=== PATIENT | female | born 1955 | race Caucasian/White ===

== ENCOUNTER 2019-12-31 12:09 | Day surgery (SDC) | payer MEDICARE ==
[~2019-12-31] VITALS: Ht 165.1 cm; Wt 38.0 kg
[~2019-12-31 12:09] MED LIST: ACID CONTROL PO; ALBIPROI INH; ALEN70 PO; AMIT25 PO; ASPI325EC PO; CEPH500 PO; CHOLESTEROL MED; CLOP75 PO; CYCL10 PO; ESCI10 PO; HYDACE5 PO; HYDACE5325 PO; INSLIS75I SC; NAPR500 PO; OMEP20ER PO; OSTEOPOROSIS MED; PRAV20 PO; RXCYCL10 PO; RXHYDACE PO; TRAM50 PO
[2019-12-31] MEDS ORDERED: Vitamin D2000 UNIT PO (12:43)
[2019-12-31] MEDS ORDERED: TOCO1000 PO (12:43)
[2019-12-31] MEDS ORDERED: FISH OIL 1,001000 MG PO (12:43)
--- NOTE | 2019-12-31 15:04 | NUR ---
PT UPDATED ON WAIT TIME, PROVIDED WITH TELEPHONE TO CONTACT FAMILY. DENIES ANY NEEDS AT THIS TIME. RESTING ON GURNEY, WATCHING TV, NADN AT THIS TIME. CALL LIGHT IN REACH.
--- NOTE | 2019-12-31 19:00 | NUR ---
BEDSIDE REPORT & ASSESSMENT OF BILAT GROIN SITES. PT W ANGIOSEAL BILAT, CLEAR DRSG IN PLACE & SOFT WITHOUT BLEEDING. R DP PULSE FAINT TO PALP, L DP DOPPLER ONLY. PT WATCHING TV, REQUESTING COFFEE & SOME DINNER. RE EDUCATED W POSITIONING REQUIREMENTS POST PROCEDURE.
--- NOTE | 2019-12-31 20:28 | NUR ---
PT HAD COFFEE, & HALF OF SANDWICH. BILAT GROIN SITES CONT SOFT, WO BLEEDING.
--- NOTE | 2019-12-31 21:35 | NUR ---
PT ASSISTED TO TOILET TO VOID. SB ASSIST BACK TO BED WO DIFF. GROIN SITES CONT STABLE, UNCHANGED. PT CALLING HER DAUGHTER FOR RIDE HOME.
--- NOTE | 2019-12-31 22:25 | NUR ---
REVIEWED DISCHARGE INSTRUCTIONS INCLUDING SITE CARE & MEDS. IV DC'D CATH INTACT. PT DRESSED SELF, WHEELED OUT BY SERVICE CAR OPERATOR WITH ALL BELONGINGS.
== END 2019-12-31 22:30 | disposition home or self-care (01) ==
LOC: MHTC 12:09 → ICUE 19:03 → MHTC 19:03 → ICUE 19:50 → MHTC 22:30 → ICUE 22:30
PROC: 047D3DZ Dilation of Left Common Iliac Artery with Intraluminal Device, Percutaneous Approach (ICD-10-PCS; principal; 2019-12-31)
PROC: 047C3DZ Dilation of Right Common Iliac Artery with Intraluminal Device, Percutaneous Approach (ICD-10-PCS; principal; 2019-12-31)
PROC: B41D1ZZ Fluoroscopy of Aorta and Bilateral Lower Extremity Arteries using Low Osmolar Contrast (ICD-10-PCS; principal; 2019-12-31)
PROC: 04703ZZ Dilation of Abdominal Aorta, Percutaneous Approach (ICD-10-PCS; principal; 2019-12-31)
DX: I70.8 Atherosclerosis of other arteries (principal); E78.5 Hyperlipidemia, unspecified; J44.9 Chronic obstructive pulmonary disease, unspecified; M19.90 Unspecified osteoarthritis, unspecified site; K21.9 Gastro-esophageal reflux disease without esophagitis; E79.0 Hyperuricemia without signs of inflammatory arthritis and tophaceous disease; G45.8 Other transient cerebral ischemic attacks and related syndromes; M81.0 Age-related osteoporosis without current pathological fracture; F17.200 Nicotine dependence, unspecified, uncomplicated; Z78.0 Asymptomatic menopausal state; Z79.02 Long term (current) use of antithrombotics/antiplatelets; Z79.82 Long term (current) use of aspirin; Z79.891 Long term (current) use of opiate analgesic; Z79.899 Other long term (current) drug therapy; Z88.0 Allergy status to penicillin; Z88.5 Allergy status to narcotic agent; Z95.820 Peripheral vascular angioplasty status with implants and grafts
CPT/HCPCS: 37221; 37246; 37252; 37253; 75625; 75716; 99152; 99153; C1760; C1769; C1876; C1887; C1894; J1644; J2250; J3010; J7030; Q9967

== ENCOUNTER 2020-10-11 10:40 | Inpatient (IN) | payer MEDICARE ==
[~2020-10-11] VITALS: Ht 157.5 cm; Wt 47.6 kg
[~2020-10-11 10:40] MED LIST changes: -ACID CONTROL PO; +AMIT25; -ASPI325EC PO; +ASPIR 8181 M1 PO; +ESCI10; +FISH OIL 1,001000 MG PO; +Iron Chews15 MG BC; +Ranitidine HCl150 M1; +TOCO1000 PO; +Vitamin D2000 UNIT PO
[2020-10-11 11:36] LABS: BASOPHILS ABSOLUTE AUTO 0.03 K/mm3 (0.00-0.23); BASOPHILS PERCENT AUTO 0 % (0-2); EOSINOPHILS ABSOLUTE AUTO 0.05 K/mm3 (0.00-0.68); EOSINOPHILS PERCENT AUTO 1 % (0-6); Hematocrit 37.8 % (33.0-51.0); Hemoglobin 11.4 g/dL (11.5-16.0); IMMATURE GRAN ABSOLUTE AUTO 0.05 K/mm3 (0.00-0.10); IMMATURE GRAN PERCENT AUTO 1 % (0-1); LYMPHOCYTES PERCENT AUTO 12 % (21-46); MONOCYTES ABSOLUTE AUTO 2.03 K/mm3 (0.16-1.47); MONOCYTES PERCENT AUTO 19 % (4-13); Mean Corpuscular HGB 29.7 pg (26.0-34.0); Mean Corpuscular HGB Conc 30.2 g/dL (31.5-36.5); Mean Corpuscular Volume 98 fL (80-100); Mean Platelet Volume 9.8 fL (9.1-12.4); NEUTROPHILS ABSOLUTE AUTO 7.08 K/mm3 (1.96-9.15); NEUTROPHILS PERCENT AUTO 67 % (41-73); Platelet Count 267 K/mm3 (150-400); RDW Coefficient Variation 13.2 % (11.7-14.2); RDW Standard Deviation 47.4 fL (35.1-46.3); Red Blood Cell Count 3.84 M/mm3 (3.80-5.20); White Blood Cell Count 10.54 K/mm3 (4.00-11.30)
[2020-10-11] MEDS ORDERED: OMEP20ER PO (11:46)
[2020-10-11] MEDS ORDERED: LEVSOD25 PO (11:46)
[2020-10-11 12:05] LABS: Alanine Aminotransfer (ALT/SGP 15 U/L (12-78); Albumin, Blood 3.4 g/dL (3.4-5.0); Albumin/Globulin Ratio 0.7 (0.8-1.8); Alk Phos 93 U/L (50-136); Anion Gap 5 mmol/L (6-16); Aspartate Aminotrans (AST/SGOT 28 U/L (12-37); Bilirubin, Total 0.4 mg/dL (0.1-1.0); Blood Urea Nitrogen 33 mg/dL (8-24); Bun/Creatinine Ratio 29.7 (12.0-20.0); CO2, Blood 30 mmol/L (21-32); Calcium, Blood 8.9 mg/dL (8.5-10.1); Chloride, Blood 98 mmol/L (98-108); Creatinine, Blood 1.11 mg/dL (0.40-1.00); Globulin, Blood 4.9 g/dL (2.2-4.0); Glomerular Filtration Rate 52 (60-); Glucose, Blood 132 mg/dL (70-99); Potassium, Blood 4.8 mmol/L (3.5-5.5); Sodium, Blood 133 mmol/L (136-145); Total Protein, Blood 8.3 g/dL (6.4-8.2); Troponin I <0.015 ng/mL (0.000-0.040)
[2020-10-11 12:23] LABS: Influenza A, PCR Negative (NEGATIVE); Influenza B, PCR Negative (NEGATIVE); Resp Syncytial Virus, PCR Negative (NEGATIVE); SARS-Cov-2 (COVID-19) PCR, MMC Negative (NEGATIVE)
[2020-10-11 12:37] LABS: Source, Urine Clean Catch
[2020-10-11 12:42] LABS: Bilirubin, Urine Neg (Neg); Blood, Urine 2+ (Neg); Glucose Qualitative, Urine Neg (Neg); Ketones, Urine Neg (Neg); Leukocyte Esterase, Urine 2+ (Neg); Nitrite, Urine Pos (Neg); Protein, Urine 1+ (Neg); Urobilinogen, Urine NORM (Normal)
[2020-10-11 12:49] LABS: Base Excess Venous 2.8 mmol/L; Bicarbonate Venous 25.6 mmol/L (24.0-30.0); PCO2 Venous 69.9 mmHg (38-42); PO2 Venous 88.3 mmHg (38-42)
[2020-10-11 12:50] LABS: pH Blood Venous 7.24 (7.34-7.37)
[2020-10-11 12:51] LABS: Appearance, Urine Clear (Clear); Color, Urine Yellow (P-Yellow)
[2020-10-11 12:55] LABS: Bacteria Many /hpf; Squamous Epithelial Cells Rare /hpf (Few)
[2020-10-11 12:56] LABS: Renal Epithelial Rare /hpf (0-Rare); Transitional Epithelial Cells Rare /hpf (0-Rare)
[2020-10-11] MEDS ORDERED: AMIT50 PO (14:34)
[2020-10-11] MEDS ORDERED: ESCI20 PO (14:35)
[2020-10-11 16:16] LABS: Base Excess Venous 1.4 mmol/L; Bicarbonate Venous 24.7 mmol/L (24.0-30.0); PCO2 Venous 65.1 mmHg (38-42); PO2 Venous 93.3 mmHg (38-42); pH Blood Venous 7.25 (7.34-7.37)
[2020-10-11] MEDS ORDERED: BREO ELLIPTA 21 EAC1 (16:35)
[2020-10-11] MEDS ORDERED: ANORO ELLIPTA1 EACH INH (16:35)
[2020-10-11] MEDS ORDERED: IPRAT-ALBUT 0.5-3 ML (16:36)
[2020-10-11] MEDS ORDERED: ALBU2.5V5 INH (16:37)
--- NOTE | 2020-10-11 16:40 | NUR ---
ADMIT PT ADMITTED TO THE FLOOR FROM THE ER, SHE IS A&O X3, VSS, ON BIPAP 10/5, FIO2 40%. SPO2 >93%, RESP SHALLOW, UNLABORED. PT REPORTS SHE WEARS 4 L O2 VIA NC @ BASELINE. PT'S DAUGHTER IS AT THE BEDSIDE, ADMISSION HX COMPLETED AT THIS TIME. CALL LIGHT IN REACH. [facility]
--- NOTE | 2020-10-11 18:46 | NUR ---
SUMMARY PT REMAINS A&O, SHE WAS PLACED ON A OXYMIZER @ 8 L SO THAT SHE COULD EAT DINNER, SPO2 REMAINED ABOVE 95%, RESP WNL, PT WAS ABLE TO SPEAK WITH FAMILY & ANSWER QUESTIONS. PT ASSISTED TO BSC, VOIDING WNL. BIPAP MASK REPLACED AFTER PT WAS ASSISTED BACK TO BED. NS WILL BE STARTED PER EMAR @ 75 ML/HR. PT'S DAUGHTER & ARE AT THE BEDSIDE & HAVE BEEN EDUCATED ON PT'S CONDITION & EXPECTIONS. PT ENC TO CALL FOR ASSISTANCE BEFORE GETTING OOB FOR SAFETY. PT STATES UNDERSTANDING. CALL LIGHT IN REACH, BED IN LOW POSITION. REPORT WILL BE GIVEN TO YAIMA ESTRADA.
[2020-10-12 03:46] LABS: BASOPHILS PERCENT AUTO 0 % (0-2); EOSINOPHILS PERCENT AUTO 0 % (0-6); Hematocrit 32.8 % (33.0-51.0); IMMATURE GRAN ABSOLUTE AUTO 0.08 K/mm3 (0.00-0.10); IMMATURE GRAN PERCENT AUTO 1 % (0-1); LYMPHOCYTES ABSOLUTE AUTO 0.97 K/mm3 (0.84-5.20); LYMPHOCYTES PERCENT AUTO 15 % (21-46); MONOCYTES ABSOLUTE AUTO 0.18 K/mm3 (0.16-1.47); MONOCYTES PERCENT AUTO 3 % (4-13); Mean Corpuscular HGB 29.6 pg (26.0-34.0); Mean Corpuscular HGB Conc 30.5 g/dL (31.5-36.5); Mean Corpuscular Volume 97 fL (80-100); Mean Platelet Volume 9.6 fL (9.1-12.4); NEUTROPHILS ABSOLUTE AUTO 5.36 K/mm3 (1.96-9.15); NEUTROPHILS PERCENT AUTO 81 % (41-73); Platelet Count 235 K/mm3 (150-400); RDW Coefficient Variation 13.1 % (11.7-14.2); RDW Standard Deviation 46.4 fL (35.1-46.3); Red Blood Cell Count 3.38 M/mm3 (3.80-5.20); White Blood Cell Count 6.59 K/mm3 (4.00-11.30)
[2020-10-12 04:08] LABS: Alanine Aminotransfer (ALT/SGP 13 U/L (12-78); Albumin, Blood 2.7 g/dL (3.4-5.0); Albumin/Globulin Ratio 0.6 (0.8-1.8); Alk Phos 76 U/L (50-136); Anion Gap 3 mmol/L (6-16); Aspartate Aminotrans (AST/SGOT 29 U/L (12-37); Bilirubin, Total 0.3 mg/dL (0.1-1.0); Blood Urea Nitrogen 21 mg/dL (8-24); Bun/Creatinine Ratio 35.2 (12.0-20.0); CO2, Blood 30 mmol/L (21-32); Calcium, Blood 8.1 mg/dL (8.5-10.1); Chloride, Blood 101 mmol/L (98-108); Globulin, Blood 4.5 g/dL (2.2-4.0); Glomerular Filtration Rate >60 (60-); Glucose, Blood 226 mg/dL (70-99); Potassium, Blood 4.3 mmol/L (3.5-5.5); Sodium, Blood 134 mmol/L (136-145); Total Protein, Blood 7.2 g/dL (6.4-8.2)
--- NOTE | 2020-10-12 05:20 | NUR ---
SHIFT SUMMARY PT SLEPT T/O SHIFT. PT ALERT AND ORIENTED X 4. HR STABLE. BP STABLE. OXYGEN SATURATION MAINTAINED ABOVE 92% ON 4 L OF OXYGEN VIA NC OR 35% FIO2 ON BIPAP. PT ALTERNATED BETWEEN BIPAP AND NC T/O SHIFT. PT ONE ASSIST UP TO COMMODE NEEDED. REPORTS NO CP OR PRESSURE. WILL CONTINUE TO MONITOR UNTIL REPORT GIVEN TO DAYSHIFT RN.
--- NOTE | 2020-10-12 17:37 | NUR ---
ADMIT: 10/11/20 DISCHARGE: DX: COPD exacerbation CC: KANDACE CALL: met with Monika, call her at home for kandace RESIDENCE: home with spouse CAREGIVER: Jose Luis Barros , Spouse / Partner, Jeniffer Huitron, Child, DX: COPD, GERD, peripheral vascular disease, hyperlipidemia, see list DME: Oxygen 3 l/m 24hours, nebulizer, front wheel walker, 4 wheel walker, lift chair. Is wanting a battery scooter for indoor use. Discussed she will need to meet with her pcp about documentation for insurance coverage of scooter. CCM: none HOME HEALTH: She is mostly homebound but does not want people coming to her home. SUMMARY: Admit 10/11/20 10/12/[address] Cheung, Monika can return home once her oxygen needs are down to baseline, 3 l/m. She is currently needing 5 l/m. Met with Monika in her room, completed needs assessment. She is not interested in home health services. She is wanting a Battery scooter, I recommend she meet with her pcp about this need. Requires special documentation and assessments. Will moniter her progress for discharge. Updated white board in room with my name and #. cp 1. Chronic obstructive pulmonary disease exacerbation. Unknown precipitating event.
--- NOTE | 2020-10-12 21:34 | NUR ---
ASSUMED CARE. AOX3. HOPES TO GO HOME TOMORROW. LUNG SOUNDS ARE DIMINISHED IN BASES. COUGH IS DRY. SOB WITH EXERTION ONLY. ON 5 LITERS OF O2, BASE IS 3 LITERS. HR REGULAR SINUS. NO EDEMA NOTED. DISCUSSED BREATHING EXERCISES SHE STATES SHE DOES DO THEM. ADMINISTED NIGHT MEDS. DENIES ANY OTHER NEEDS.
[2020-10-13 05:21] LABS: BASOPHILS ABSOLUTE AUTO 0.02 K/mm3 (0.00-0.23); BASOPHILS PERCENT AUTO 0 % (0-2); EOSINOPHILS PERCENT AUTO 0 % (0-6); Hematocrit 30.8 % (33.0-51.0); Hemoglobin 9.6 g/dL (11.5-16.0); IMMATURE GRAN PERCENT AUTO 1 % (0-1); LYMPHOCYTES ABSOLUTE AUTO 1.08 K/mm3 (0.84-5.20); LYMPHOCYTES PERCENT AUTO 5 % (21-46); MONOCYTES ABSOLUTE AUTO 2.76 K/mm3 (0.16-1.47); MONOCYTES PERCENT AUTO 12 % (4-13); Mean Corpuscular HGB 30.1 pg (26.0-34.0); Mean Corpuscular HGB Conc 31.2 g/dL (31.5-36.5); Mean Corpuscular Volume 97 fL (80-100); Mean Platelet Volume 9.7 fL (9.1-12.4); NEUTROPHILS ABSOLUTE AUTO 18.57 K/mm3 (1.96-9.15); NEUTROPHILS PERCENT AUTO 82 % (41-73); Platelet Count 261 K/mm3 (150-400); RDW Coefficient Variation 13.4 % (11.7-14.2); RDW Standard Deviation 47.2 fL (35.1-46.3); Red Blood Cell Count 3.19 M/mm3 (3.80-5.20); White Blood Cell Count 22.63 K/mm3 (4.00-11.30)
[2020-10-13 05:48] LABS: Anion Gap 3 mmol/L (6-16); Blood Urea Nitrogen 14 mg/dL (8-24); Bun/Creatinine Ratio 28.3 (12.0-20.0); CO2, Blood 31 mmol/L (21-32); Calcium, Blood 8.5 mg/dL (8.5-10.1); Chloride, Blood 104 mmol/L (98-108); Creatinine, Blood 0.49 mg/dL (0.40-1.00); Glomerular Filtration Rate >60 (60-); Glucose, Blood 119 mg/dL (70-99); Sodium, Blood 138 mmol/L (136-145)
--- NOTE | 2020-10-13 05:50 | NUR ---
SHIFT SUMMARY: AOX3, LUNG SOUNDS DIMINISHED T/O. COUGH DRY. SATS >90% ON 5 LITERS, BUT MAINTAINING IN THE LOW 90'S. DYSPNEA WITH EXERTION ONLY. VS WNL, AFEBRILE. HAS SLEPT WELL ON AND OFF THIS SHIFT. IS ABLE TO GET UP TO THE BATHROOM WITH SBA. ABDOMIN SLIGHTLY DISTENDED, FIRM, PASSING FLATUS, BUT NEEDS TO HAVE BM. STATE SHE WILL BY TODAY. NO EDEMA NOTED. GOOD APPETITE. ENCOURAGE FLUID INTAKE. NO ACUTE CHANGES TO REPORT THIS SHIFT. CALL LIGHT IS IN REACH.
[2020-10-13] MEDS ORDERED: PRED20 PO (13:15)
--- NOTE | 2020-10-13 14:09 | NUR ---
Discharge Summary A/Ox3, pleasant and cooperative with care. Up x 1P c FWW. Calls appropriately for needs. 3L via MT. Discharging to home. Reviewed discharge paperwork with patient and at bedside. No questions at this time. IV removed, WNL. Copy provided. Personal belongings will be sent home. Patient will be escorted via w/c by COIL TAPER once daughter arrives with clothes. Med faxed to preferred pharmacy by Enriqueta.
--- NOTE | 2020-10-13 18:19 | NUR ---
SUMMARY: Admit 10/11/20 Discharge 10/13/20, home with . can drive her home, himself and daughter Jeniffer help with care needs at home. Currently on 3 l/m oxygen 24 hours. Baird will call for transition of care and follow up appointment on Monday or . Gave her KANDACE letter with all follow up information and my telephone number for problems. cp
== END 2020-10-13 14:58 | disposition home or self-care (01) | DRG 189 ==
LOC: ER 10:40 → PCU 14:29 → MEDS 10-12 17:47
PROVIDERS: Emergency Medicine; Family Medicine; Nurse Practitioner Acute Care; ADMIT Internal Medicine
DX: J96.21 Acute and chronic respiratory failure with hypoxia (principal); J44.1 Chronic obstructive pulmonary disease with (acute) exacerbation; N17.9 Acute kidney failure, unspecified; E46 Unspecified protein-calorie malnutrition; N39.0 Urinary tract infection, site not specified; Z68.1 Body mass index [BMI] 19.9 or less, adult; J96.22 Acute and chronic respiratory failure with hypercapnia; Z20.822 Contact with and (suspected) exposure to COVID-19; G89.29 Other chronic pain; M54.5 Low back pain; K21.9 Gastro-esophageal reflux disease without esophagitis; E03.9 Hypothyroidism, unspecified; I73.9 Peripheral vascular disease, unspecified; F17.210 Nicotine dependence, cigarettes, uncomplicated; B96.20 Unspecified Escherichia coli [E. coli] as the cause of diseases classified elsewhere; M81.0 Age-related osteoporosis without current pathological fracture; Z79.82 Long term (current) use of aspirin; Z79.02 Long term (current) use of antithrombotics/antiplatelets
CPT/HCPCS: 0241U; 36415; 51701; 71045; 71260; 80048; 80053; 81001; 82803; 83880; 84145; 84484; 85025; 85379; 87077; 87086; 87186; 93005; 93010; 94640; 94660; 94760; 94762; 99285-25; A9270; J0696; J1650; J2930; J7030; J7512; Q9967

== ENCOUNTER 2020-12-22 14:06 | Emergency (ER) | payer MEDICARE ==
[~2020-12-22] VITALS: Ht 160 cm; Wt 50.8 kg
[~2020-12-22 14:06] MED LIST changes: +ALBU2.5V5 INH; +AMIT50 PO; +ANORO ELLIPTA1 EACH INH; +BREO ELLIPTA 21 EAC1; +ESCI20 PO; +IPRAT-ALBUT 0.5-3 ML; +LEVSOD25 PO; +PRED20 PO
[2020-12-22] MEDS ORDERED: HYDROCODONE-AC1 EA11 PO (15:31)
== END 2020-12-22 16:21 | disposition home or self-care (01) ==
LOC: ER 14:06
DX: M54.5 Low back pain (principal); K21.9 Gastro-esophageal reflux disease without esophagitis; J44.9 Chronic obstructive pulmonary disease, unspecified; E03.9 Hypothyroidism, unspecified; E78.5 Hyperlipidemia, unspecified; Z88.0 Allergy status to penicillin; Z88.5 Allergy status to narcotic agent; Z79.899 Other long term (current) drug therapy
CPT/HCPCS: 72070; 72100; 96372; 99283-25; J1885

== ENCOUNTER 2022-02-01 05:46 | Inpatient (IN) | payer MEDICARE ==
[~2022-02-01] VITALS: Ht 162.6 cm; Wt 50.0 kg
[~2022-02-01 05:46] MED LIST changes: +Norco 5-325 Ta1 EACH PO
[2022-02-01 06:56] LABS: BASOPHILS ABSOLUTE AUTO 0.02 K/mm3 (0.00-0.23); BASOPHILS PERCENT AUTO 0 % (0-2); EOSINOPHILS ABSOLUTE AUTO 0.05 K/mm3 (0.00-0.68); EOSINOPHILS PERCENT AUTO 0 % (0-6); Hematocrit 37.3 % (33.0-51.0); Hemoglobin 11.3 g/dL (11.5-16.0); IMMATURE GRAN ABSOLUTE AUTO 0.15 K/mm3 (0.00-0.10); IMMATURE GRAN PERCENT AUTO 1 % (0-1); LYMPHOCYTES ABSOLUTE AUTO 1.54 K/mm3 (0.84-5.20); LYMPHOCYTES PERCENT AUTO 9 % (21-46); MONOCYTES ABSOLUTE AUTO 2.96 K/mm3 (0.16-1.47); MONOCYTES PERCENT AUTO 18 % (4-13); Mean Corpuscular HGB Conc 30.3 g/dL (31.5-36.5); Mean Corpuscular Volume 96 fL (80-100); Mean Platelet Volume 9.9 fL (9.1-12.4); NEUTROPHILS ABSOLUTE AUTO 11.82 K/mm3 (1.96-9.15); NEUTROPHILS PERCENT AUTO 72 % (41-73); Platelet Count 218 K/mm3 (150-400); RDW Coefficient Variation 14.6 % (11.7-14.2); White Blood Cell Count 16.54 K/mm3 (4.00-11.30)
[2022-02-01 07:08] LABS: Albumin, Blood 3.2 g/dL (3.4-5.0); Albumin/Globulin Ratio 0.7 (0.8-1.8); Bilirubin, Total 0.2 mg/dL (0.1-1.0); Bun/Creatinine Ratio 46.2 (12.0-20.0); Creatinine, Blood 0.69 mg/dL (0.40-1.00); Globulin, Blood 4.9 g/dL (2.2-4.0); Total Protein, Blood 8.1 g/dL (6.4-8.2)
[2022-02-01 08:30] LABS: Influenza A, PCR NEGATIVE (NEGATIVE); Influenza B, PCR NEGATIVE (NEGATIVE); Resp Syncytial Virus, PCR NEGATIVE (NEGATIVE); SARS-Cov-2 (COVID-19) PCR, MMC NEGATIVE (NEGATIVE)
[2022-02-01 10:16] LABS: Source, Urine Straight Cath
[2022-02-01 10:23] LABS: Appearance, Urine Clear (Clear); Bilirubin, Urine Neg (Neg); Blood, Urine 2+ (Neg); Color, Urine Yellow (P-Yellow); Glucose Qualitative, Urine Neg (Neg); Ketones, Urine 1+ (Neg); Leukocyte Esterase, Urine Neg (Neg); Nitrite, Urine Pos (Neg); Protein, Urine 2+ (Neg); Specific Gravity, Urine 1.025 (1.003-1.022); Urobilinogen, Urine NORM (Normal)
[2022-02-01 10:33] LABS: Red Blood Cells, Urine 0-2 /hpf (0-2)
[2022-02-01 10:34] LABS: Bacteria Many /hpf; Squamous Epithelial Cells Few /hpf (Few)
[2022-02-01] MEDS ORDERED: Ranitidine HCl150 M1 PO (16:44)
[2022-02-01] MEDS ORDERED: ALBU90OI (16:51)
--- NOTE | 2022-02-02 07:36 | NUR ---
SHIFT SUMMARY: PATIENT HAD ONE EPISDOE OF DYSPNEA FOLLOWING A COUGHING SPELL. RT PROVIDED TREATMENT AND SHE RECOVERED QUICKLY. SATS MAINTAINED DURING EPISODE. COARSE LUNGS T/O, ENCOURAGED FLUTTER DEVICE AND IS. REAMINS ON 6L 02 (3L BASELINE) RT WORKING ON WEANING HER DOWN. DECREASED APPETITIE. FAMILY BROUGHT IN SNACKS.
[2022-02-02 07:45] LABS: BASOPHILS ABSOLUTE AUTO 0.05 K/mm3 (0.00-0.23); BASOPHILS PERCENT AUTO 0 % (0-2); EOSINOPHILS PERCENT AUTO 0 % (0-6); Hematocrit 31.3 % (33.0-51.0); Hemoglobin 9.8 g/dL (11.5-16.0); IMMATURE GRAN ABSOLUTE AUTO 0.23 K/mm3 (0.00-0.10); IMMATURE GRAN PERCENT AUTO 1 % (0-1); LYMPHOCYTES ABSOLUTE AUTO 1.93 K/mm3 (0.84-5.20); LYMPHOCYTES PERCENT AUTO 9 % (21-46); MONOCYTES ABSOLUTE AUTO 3.29 K/mm3 (0.16-1.47); MONOCYTES PERCENT AUTO 15 % (4-13); Mean Corpuscular HGB 29.6 pg (26.0-34.0); Mean Corpuscular HGB Conc 31.3 g/dL (31.5-36.5); Mean Corpuscular Volume 95 fL (80-100); Mean Platelet Volume 10.3 fL (9.1-12.4); NEUTROPHILS ABSOLUTE AUTO 16.96 K/mm3 (1.96-9.15); NEUTROPHILS PERCENT AUTO 76 % (41-73); Platelet Count 207 K/mm3 (150-400); RDW Coefficient Variation 14.8 % (11.7-14.2); RDW Standard Deviation 51.6 fL (35.1-46.3); Red Blood Cell Count 3.31 M/mm3 (3.80-5.20); White Blood Cell Count 22.46 K/mm3 (4.00-11.30)
[2022-02-02 07:57] LABS: Bun/Creatinine Ratio 43.7 (12.0-20.0); Calcium, Blood 8.7 mg/dL (8.5-10.1); Creatinine, Blood 0.57 mg/dL (0.40-1.00); Potassium, Blood 3.3 mmol/L (3.5-5.5)
--- NOTE | 2022-02-02 18:26 | NUR ---
SHIFT SUMMARY PT IS ALERT AND ORIENTEDx4, COOPERTIVE AND PLEASENT. INTIALLY PT WAS ON 6L OF O2 VIA NC. PER DR REQUEST, ATTEMPTED TO GET PT DOWN ON O2 WITH GOAL SPO2 >89%. PT HAS REMAINED ON 5L O2 THIS AFTERNOON. PT DOES CONTINUE TO HAVE DYSPNEA WITH EXERTION. KCL RIDERS ADMINISTERED TODAY PER ORDERS AND PT TOLERATED WELL. OTHER VITALS HAVE REMAINED STABLE. FAMILY DECLINES TO HAVE PT WEAR DNR BRACELET. PT AWARE OF FAMILY REQUEST. DNR BRACELET IS ON COMPUTER.
--- NOTE | 2022-02-03 06:39 | NUR ---
SHIFT SUMMARY: ABLE TO WEAN PATIENT DOWN TO 3.5L. PATIENT SAT 92% DENIES DYSPNEA. COMPLIANT WITH CARE. ABLE TO AMBULATE TO RESTROOM INDEPENDENTLY WITHOUT DYSPNEA. NO ACUTE EXACERBATIONS ON NOC.
[2022-02-03] MEDS ORDERED: HYDR1TAB94 PO (12:58)
[2022-02-03] MEDS ORDERED: IPRAT-ALBUT 0.5-3 ML INH (13:02)
[2022-02-03] MEDS ORDERED: Nicoderm Cq1 EAC1 TOP (13:03)
[2022-02-03] MEDS ORDERED: CEFD300 PO (13:07)
[2022-02-03] MEDS ORDERED: TEMA15 PO (13:07)
[2022-02-03] MEDS ORDERED: Prednisone10 MG PO (13:09)
--- NOTE | 2022-02-03 15:32 | NUR ---
PT DISCHARGED WITH BELONGINGS IN HAND TO DAUGHTERS CARE/AUTOMOBILE FOR TAKE HOME. PT WITH DISCHARGE INSTRUCTIONS IN HAND. PT VOICED UNDERSTANDING OF AFTERCARE AND DISCUSSED CARE WITH DAUGHTER. PT TRANSFERED TO AUTOMOBILE VIA WHEELCHAIR. HARD SCRIPTS OF NEW MEDS IN HAND. NEW MEDICATIONS FAXED TO PT PHARMACY REQUESTED.
--- NOTE | 2022-02-03 15:35 | NUR ---
PT A&O X3. PT COMPLIANT WITH CARE GIVEN. PT PAIN MANAGED VIA EMAR. PT APPETITE EXCELLENT. PT EAGERLY AWAITING DISCHARGE TO GO HOME WITH DAUGHTER FOR CARE. VSS. PT INDEPENDANT IN ROOM. PT ON 3L O2 IN ROOM. PT RESTING WITH CALL LIGHT AND SIDERAILS UP X3
== END 2022-02-03 15:30 | disposition home or self-care (01) | DRG 189 ==
LOC: ER 05:46 → MEDS 05:47 → ER 05:47 → MEDS 05:48
PROVIDERS: Student in an Organized Health Care Education/Training Program; ADMIT Internal Medicine
DX: J96.21 Acute and chronic respiratory failure with hypoxia (principal); J44.1 Chronic obstructive pulmonary disease with (acute) exacerbation; N39.0 Urinary tract infection, site not specified; E87.1 Hypo-osmolality and hyponatremia; E46 Unspecified protein-calorie malnutrition; J44.0 Chronic obstructive pulmonary disease with (acute) lower respiratory infection; Z68.1 Body mass index [BMI] 19.9 or less, adult; Z20.822 Contact with and (suspected) exposure to COVID-19; Z66 Do not resuscitate; J20.9 Acute bronchitis, unspecified; E03.9 Hypothyroidism, unspecified; K21.9 Gastro-esophageal reflux disease without esophagitis; B96.20 Unspecified Escherichia coli [E. coli] as the cause of diseases classified elsewhere; E78.5 Hyperlipidemia, unspecified; I73.9 Peripheral vascular disease, unspecified; D53.9 Nutritional anemia, unspecified; E86.0 Dehydration; M81.0 Age-related osteoporosis without current pathological fracture; E87.6 Hypokalemia; F17.210 Nicotine dependence, cigarettes, uncomplicated; Z71.6 Tobacco abuse counseling; I65.29 Occlusion and stenosis of unspecified carotid artery; Z99.81 Dependence on supplemental oxygen; Z90.710 Acquired absence of both cervix and uterus; Z98.890 Other specified postprocedural states; Z88.0 Allergy status to penicillin; Z88.5 Allergy status to narcotic agent; Z79.82 Long term (current) use of aspirin; Z79.890 Hormone replacement therapy; Z79.899 Other long term (current) drug therapy
CPT/HCPCS: 0241U; 31720; 36415; 51701; 71045; 80048; 80053; 81001; 83880; 84484; 85025; 87077; 87086; 87186; 93005; 93010; 94640; 94664; 94668; 94760; 96365-59; 96366-59; 96372; 96375-59; 96376; 98960; 99285-25; A9270; G0378; J0456; J0696; J1650; J2920; J2930; J3480; J7030; J7050; J7060